=== PATIENT | female | born 2000 | race American Indian/Alaskan Native ===

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

== ENCOUNTER 2019-07-27 01:56 | Emergency (ER) | payer MEDICAID ==
[2019-07-27 02:24] VITALS: BP 114/73
[2019-07-27] MEDS ORDERED: IBUPROFEN 800 MG TAB PO ONE (07:30)
[2019-07-27] MEDS ORDERED: TETANUS,DIPH,PERTUSS(ACELL) VACCINE 0.5 ML SYRINGE IM ONE (07:30)
[2019-07-27] MEDS ORDERED: LIDOCAINE (1%) 10 MG/1 ML VIAL 20 ML MDV INFILTRATI ONE (07:54)
[2019-07-27] MEDS ORDERED: NEOMY 3.5 MG/BACIT 400 UNITS/POLY B 5000 UNITS/GM OINT PACKET TP ONE (07:54)
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
[2019-07-27] MEDS ORDERED: SODIUM CHLORIDE 0.9% IRR 500 ML BOTTLE IR ONE (09:00)
[2019-07-27] MEDS ORDERED: LIDOCAINE-MPF (1%) 10 MG/1 ML VIAL 5 ML INFILTRATI ONE (09:04)
== END 2019-07-27 12:24 | disposition home or self-care (01) ==
LOC: ED 01:56
DX: S81.811A Laceration without foreign body, right lower leg, initial encounter (principal); S10.91XA Abrasion of unspecified part of neck, initial encounter; S40.811A Abrasion of right upper arm, initial encounter; J45.909 Unspecified asthma, uncomplicated; F17.200 Nicotine dependence, unspecified, uncomplicated; Z91.018 Allergy to other foods; Y04.8XXA Assault by other bodily force, initial encounter; Y93.89 Activity, other specified; Y92.89 Other specified places as the place of occurrence of the external cause; Y99.8 Other external cause status
CPT/HCPCS: 12001; 90471; 90715; 96372; 99283; J0696; A6250

== ENCOUNTER 2021-02-18 17:22 | Outpatient (CLI) | payer MEDICAID ==
[2021-02-18 18:03] VITALS: BP 105/65
[2021-02-18 20:30] LABS: Bilirubin,Urine NEG (Negative); Blood,Urine NEG (Negative); Color,Urine Yellow (Yellow); Mucus,Urine FEW /HPF; Protein,Urine <15 mg/dL mg/dL (Negative); Urobilinogen,Urine < 2.0 mg/dL (<2.0)
== END 2021-02-18 21:23 | disposition home or self-care (01) ==
LOC: TRG 17:22 → APU 17:27 → TRG 21:23
PROVIDERS: ATTEND Obstetrics & Gynecology
DX: O26.892 Other specified pregnancy related conditions, second trimester (principal); R10.9 Unspecified abdominal pain; O47.02 False labor before 37 completed weeks of gestation, second trimester; Z3A.26 26 weeks gestation of pregnancy
CPT/HCPCS: 81001; 87086; Q0177

== ENCOUNTER 2021-02-19 22:45 | Outpatient (CLI) | payer MEDICAID ==
[2021-02-19] MEDS ORDERED: LACTATED RINGERS 500 ML IV ONE (23:46)
[2021-02-20 00:10] LABS: Bilirubin,Urine NEG (Negative); Blood,Urine NEG (Negative); Color,Urine Yellow (Yellow); Mucus,Urine FEW /HPF
[2021-02-20] MEDS ORDERED: LIDOCAINE-MPF (1%) 10 MG/1 ML VIAL 5 ML INFILTRATI ONE (00:20)
[2021-02-20] MEDS ORDERED: ACETAMINOPHEN 500 MG TAB PO ONE (00:21)
[2021-02-20] MEDS ORDERED: FLUCONAZOLE 200 MG TAB PO ONE (00:30)
[2021-02-20 01:38] VITALS: BP 104/56
== END 2021-02-20 01:41 | disposition home or self-care (01) ==
LOC: TRG 22:45 → APU 23:00 → TRG 02-20 01:41
PROVIDERS: ATTEND Obstetrics & Gynecology
DX: O26.892 Other specified pregnancy related conditions, second trimester (principal); Z3A.26 26 weeks gestation of pregnancy
CPT/HCPCS: 81001; 96372; J0696; 59025

== ENCOUNTER 2021-05-09 12:59 | Outpatient (CLI) | payer MEDICAID ==
[2021-05-09 18:04] VITALS: BP 113/78
--- NOTE | 2021-05-09 18:36 | Ultrasound Report ---
Limited OB Ultrasound Biophysical profile ultrasound HISTORY: well being. TECHNIQUE: Grayscale and color imaging performed. COMPARISON: None FINDINGS: There is a single intrauterine gestation with cephalic presentation. ADELE is 10 cm. Heart ra te is 141 bpm. On biophysical profile, the fetus received a score of 2 out of 2 for breathing, movement, posture/ton e, and ADELE. Total score was 8 out of 8. IMPRESSION: 1. Single viable intrauterine gestation as above. 2. Normal BPP. Signer Name: Daljit Hodges MD Signed: 05/09/2021 6:32 PM Workstation Name: [id number]
== END 2021-05-09 19:20 | disposition home or self-care (01) ==
LOC: TRG 12:59 → APU 13:01 → TRG 19:20
PROVIDERS: ATTEND Obstetrics & Gynecology
DX: Z34.93 Encounter for supervision of normal pregnancy, unspecified, third trimester (principal); Z3A.39 39 weeks gestation of pregnancy
CPT/HCPCS: 36415; 76815; 76819; 84112

== ENCOUNTER 2021-05-14 04:47 | Inpatient (IN) | payer MEDICAID ==
[2021-05-14] MEDS ORDERED: ONDANSETRON 4 MG/2 ML INJ IV ONE (05:25)
[2021-05-14] MEDS ORDERED: LACTATED RINGERS 1,000 ML IV ONE (05:29)
[2021-05-14 06:47] LABS: Bilirubin,Urine NEG (Negative); Blood,Urine MOD (Negative); Color,Urine Straw (Yellow); Protein,Urine <15 mg/dL mg/dL (Negative); Urobilinogen,Urine < 2.0 mg/dL (<2.0)
[2021-05-14 07:43] LABS: Basophils # (Auto) 0.1 K/mm3 (0.0-0.1); Basophils % (Auto) 1.2 % (0.0-1.8); Eosinophils # (Auto) 0.2 K/mm3 (0.0-0.4); Eosinophils % (Auto) 1.4 % (0.0-4.3); Hematocrit 33.4 % (30.3-42.9); Hemoglobin 11.4 gm/dl (10.1-14.3); Lymphocytes # (Auto) 2.7 K/mm3 (1.2-5.4); Lymphocytes % (Auto) 21.8 % (13.4-35.0); Mean Corpuscular HGB Conc 34 % (30-34); Mean Corpuscular Volume 83 fl (79-97); Monocytes # (Auto) 0.9 K/mm3 (0.0-0.8); Monocytes % (Auto) 7.2 % (0.0-7.3); Platelet Count 241 K/mm3 (140-440); Red Blood Count 4.02 M/mm3 (3.65-5.03); Red Cell Distribution Width 19.4 % (13.2-15.2)
[2021-05-14] MEDS ORDERED: LACTATED RINGERS 1,000 ML ONE (08:40)
[2021-05-14] MEDS ORDERED: OXYTOCIN DRIP 30,000 MILLIUNITS/500 ML BAG IV ONE (08:41)
[2021-05-14] MEDS ORDERED: TERBUTALINE 1 MG/1 ML INJ SUB-Q PRN (08:45)
[2021-05-14] MEDS ORDERED: CARBOPROST TROMETHAMINE 250 MCG/1 ML INJ IM PRN (08:45)
[2021-05-14] MEDS ORDERED: OXYTOCIN 10 UNIT/1 ML INJ IM PRN (08:45)
[2021-05-14] MEDS ORDERED: miSOPROStol 200 MCG TAB PR PRN (08:45)
[2021-05-14] MEDS ORDERED: LACTATED RINGERS 1,000 ML IV SCH (08:45)
[2021-05-14] MEDS ORDERED: LIDOCAINE (2%) 20 MG/1 ML VIAL 20 ML MDV INFILTRATI ONE ×2 (08:45→14:27)
[2021-05-14] MEDS ORDERED: MINERAL OIL 30 ML ORAL LIQD PO PRN (08:45)
[2021-05-14] MEDS ORDERED: ePHEDrine SULFATE 50 MG/1 ML INJ IV PRN (08:45)
[2021-05-14] MEDS ORDERED: LOPERAMIDE 2 MG CAP PO PRN (08:45)
[2021-05-14] MEDS ORDERED: METHYLERGONOVINE MALEATE 0.2 MG/ML VIAL IM PRN (08:45)
--- NOTE | 2021-05-14 08:50 | History and Physical Report ---
History of Present Illness Date of examination: 05/14/21 Date of admission: May 14, 2021 Chief complaint: Leakage of fluid and uterine contractions History of present illness: 21-year-old at 38+5 weeks who presents in active labor with leakage of fluid. The patient initiated care 15 weeks estimated gestational age. Her course has been complicated by STD exposure and hemoglobin C trait positive. GBS is negative Past History Past Medical History: other (Hemoglobin C trait) Past Surgical History: other (Exploratory laparotomy) Social history: single - Obstetrical History Expected Date of Delivery: 05/23/21 Actual Gestation: 38 Week(s) 5 Day(s) : 1 Para: 0 Hx # Term Pregnancies: 0 Number of Pregnancies: 0 Spontaneous Abortions: 0 Induced : 0 Number of Living Children: 0 Medications and Allergies Allergies Allergy/AdvReac Type Severity Reaction Status Date / Time mustard Allergy Itching Verified 07/27/19 02:26 Home Medications Medication Instructions Recorded Confirmed Last Taken Type cephALEXin [Keflex] 500 mg PO Q12HR #20 cap 07/27/19 05/14/21 Unknown Rx Review of Systems All systems: negative Genitourinary: leakage of fluid, contractions - Vital Signs Vital signs: Vital Signs Pulse BP 89 136/80 05/14/21 05:09 05/14/21 05:09 Temp Pulse Resp BP Pulse Ox 71 136/80 96 05/14/21 08:29 05/14/21 05:09 05/14/21 08:29 - Physical Exam Breasts: Positive: deferred Cardiovascular: Regular rate Lungs: Positive: Clear to auscultation Abdomen: Positive: normal appearance Results Result Diagrams: 05/14/21 06:29 Abnormal lab results 05/14/21 05/14/21 Range/Units 06:29 06:29 WBC 12.2 H (4.5-11.0) K/mm3 RDW 19.4 H (13.2-15.2) % [place] # (Auto) 0.9 H (0.0-0.8) K/mm3 Seg Neutrophils # 8.4 H (1.8-7.7) K/mm3 Membranes Rupture Positive A (Negative) All other labs normal. Assessment and Plan - Patient Problems (1) Active labor at term Current Visit: Yes Status: Acute Plan to address problem: Admit to labor and delivery
[2021-05-14] MEDS ORDERED: OXYTOCIN DRIP 30 UNITS/500 ML BAG IV SCH ×2 (09:00)
[2021-05-14] MEDS: BUTORPHANOL 2 MG/1 ML INJ IV PRN ×3 (09:40→14:45)
[2021-05-14] MEDS ORDERED: MAGNESIUM HYDROXIDE (MOM) ORAL LIQD UDC PO PRN (16:42)
[2021-05-14] MEDS ORDERED: PROMETHAZINE 25 MG TAB PO PRN (16:42)
[2021-05-14] MEDS ORDERED: WITCH HAZEL/ GLYCERIN PAD TP PRN (16:42)
[2021-05-14] MEDS ORDERED: diphenhydrAMINE 25 MG CAP PO PRN (16:42)
[2021-05-14] MEDS ORDERED: ACETAMINOPHEN 325 MG TAB PO PRN (16:42)
[2021-05-14] MEDS ORDERED: LANOLIN/ZINC/DIMETHICONE (LANSINOH) 7 GM TP PRN (16:42)
[2021-05-14] MEDS ORDERED: ONDANSETRON 4 MG/2 ML INJ IV PRN (16:42)
[2021-05-14] MEDS ORDERED: PROMETHAZINE 25 MG RECT SUPP PR PRN (16:42)
--- NOTE | 2021-05-14 16:44 | Procedure Note ---
OB Delivery Note - Delivery Date of Delivery: 05/14/21 Surgeon: STORM GAUTHIER - Vaginal Delivery presentation: vertex Delivery position: OA Intrapartum events: meconium Delivery augmentation: pitocin Delivery monitor: external FHT, external uterine Route of delivery: Delivery placenta: spontaneous Delivery cord: 3 umbilical vessels Episiotomy: none Delivery laceration: none Anesthesia: none - Infant A at 1 minute: 8 at 5 minutes: 9 Gender: Male (Weight 7 pounds 2 ounces)
[2021-05-14] MEDS: IBUPROFEN 600 MG TAB PO SCH (18:31)
[2021-05-14] MEDS: HYDROcodone/ACETAMINOPHEN 5-325 MG TAB PO PRN (19:33)
[2021-05-14 23:31] LABS: Hematocrit 26.7 % (30.3-42.9); Hemoglobin 9.1 gm/dl (10.1-14.3); Mean Corpuscular HGB Conc 34 % (30-34); Mean Corpuscular Volume 83 fl (79-97); Platelet Count 190 K/mm3 (140-440); Red Cell Distribution Width 19.8 % (13.2-15.2)
[2021-05-15] MEDS: IBUPROFEN 600 MG TAB PO SCH ×3 (00:02→11:15)
[2021-05-15] MEDS: HYDROcodone/ACETAMINOPHEN 5-325 MG TAB PO PRN ×3 (02:02→16:37)
[2021-05-15 06:13] LABS: Hematocrit 28.1 % (30.3-42.9); Hemoglobin 9.5 gm/dl (10.1-14.3)
--- NOTE | 2021-05-15 08:06 | Progress Note ---
Assessment and Plan A: PPD#1 s/p at term Elevated WBCs-patient afebrile P: Continue with routine care Repeat CBC, if WBC decrease, anticipate discharge at 24hrs. Subjective - Subjective Date of service: 05/15/21 Principal diagnosis: PPD#1 s/p at term Interval history: PPD #1 s/p at term. Patient is resting and is without complaints. Reports no problems with ambulation, decreasing lochia and adequate pain control. Patient reports: appetite normal, voiding normally, pain well controlled, ambulating normally [place]: doing well Objective - Vital Signs Latest vital signs: Vital Signs Temp Pulse Resp BP BP Pulse Ox 05/15/21 05:52 18 05/15/21 04:43 98.0 F 83 18 124/81 99 05/15/21 02:02 20 05/15/21 00:44 97.9 F 89 18 118/78 98 05/15/21 00:02 20 05/14/21 21:09 98.2 F 75 16 135/83 98 05/14/21 19:33 20 05/14/21 18:05 98.3 F 82 18 123/77 99 05/14/21 17:33 75 141/73 05/14/21 17:32 81 143/64 05/14/21 17:30 82 162/68 05/14/21 17:18 75 145/72 05/14/21 17:03 77 130/75 05/14/21 16:52 73 132/74 05/14/21 16:48 77 143/57 05/14/21 16:34 83 160/67 05/14/21 16:24 106 H 173/110 05/14/21 16:06 79 98 05/14/21 16:01 86 96 05/14/21 15:56 83 77 L 05/14/21 15:53 87 125/69 05/14/21 15:51 86 97 05/14/21 15:46 89 99 05/14/21 15:41 91 H 99 05/14/21 15:36 86 97 05/14/21 15:31 92 H 99 05/14/21 15:26 87 98 05/14/21 15:22 75 130/72 05/14/21 15:21 78 99 05/14/21 15:16 86 99 05/14/21 15:11 77 99 07/05/21 15:06 85 99 07/05/ 15:01 91 H 99 07/05/ 14:56 80 99 07/05/21 14:52 82 124/72 07/05/21 14:51 75 98 07/05/21 14:46 79 97 07/05/21 14:42 82 98 07/05/ 14:36 102 H 99 0705/ 14:31 110 H 98 07/05/ 14:26 82 96 07/05/21 14:25 78 132/82 07/05/21 14:21 87 97 07/05/ 14:17 98 H 97 07/05/ 14:12 86 99 07/05/ 14:06 82 97 07/05/ 14:01 78 98 07/05/ 13:57 80 96 07/05/ 13:52 72 132/80 07/05/ 13:51 81 97 07/05/ 13:46 78 97 07/05/ 13:41 84 96 0705/ 13:36 76 97 07/05/ 13:31 92 H 96 05/ 13:26 82 97 07/05/ 13:22 83 122/78 07/05/ 13:21 79 97 07/05/ 13:16 80 98 07/05/ 13:11 90 98 07/05/ 13:06 84 97 05/ 13:01 82 96 07/05/ 12:56 90 98 07/05/ 12:52 78 137/75 07/05/ 12:51 95 H 97 07/05/ 12:46 84 96 07/05/21 12:41 89 98 07/05/ 12:36 88 98 07/05/21 12:31 84 97 07/05/21 12:26 86 96 07/05/21 12:23 86 125/77 07/05/21 12:21 112 H 97 07/05/ 12:16 87 98 07/05/21 12:11 94 H 99 05/ 12:06 105 H 98 07/05/ 11:56 88 97 07/05/21 11:52 79 120/71 07/05/21 11:51 78 97 07/05/ 11:46 78 97 07/05/ 11:41 95 H 97 05/14/21 11:36 79 97 05/14/21 11:31 82 97 05/14/21 11:27 83 97 05/14/21 11:22 72 140/83 05/14/21 11:21 89 98 05/14/21 11:17 85 96 05/14/21 11:11 87 98 05/14/21 11:06 81 98 05/14/21 11:01 89 98 05/14/21 10:57 79 98 05/14/21 10:52 77 136/82 05/14/21 10:51 75 97 05/14/21 10:46 84 98 05/14/21 10:42 79 99 05/14/21 10:37 85 99 05/14/21 10:32 86 99 05/14/21 10:26 92 H 98 05/14/21 10:22 83 0 L 05/14/21 10:21 75 L 05/14/21 10:01 98 H 100 05/14/21 09:55 78 96 05/14/21 09:51 85 97 05/14/21 09:46 79 94 05/14/21 09:41 99 H 93 05/14/21 09:40 102 H 78 L 05/14/21 09:25 86 129/79 05/14/21 08:29 71 96 05/14/21 08:24 68 98 05/14/21 08:19 86 99 05/14/21 08:14 73 99 05/14/21 08:09 63 97 05/14/21 08:04 87 99 Intake and Output 05/14/21 05/15/21 05/15/21 23:59 07:59 15:59 Intake Total 240 600 Output Total 600 1300 Balance -360 -700 Intake: Oral 240 Intake, Free Water 600 Output: Urine 600 1300 Void 600 1300 Other: Total, Intake Amount 240 Total, Output Amount 600 500 # Voids Void 1 - Labs Labs: Abnormal lab results 05/14/21 05/14/21 05/15/21 Range/Units 06:29 22:59 05:55 WBC 19.8 H (4.5-11.0) K/mm3 RBC 3.20 L (3.65-5.03) M/mm3 Hgb 9.1 L 9.5 L (10.1-14.3) gm/dl Hct 26.7 L D 28.1 L (30.3-42.9) % RDW 19.8 H (13.2-15.2) % Membranes Rupture Positive A (Negative)
--- NOTE | 2021-05-15 08:08 | Discharge Summary ---
Providers - Providers Date of Admission: 05/14/21 08:46 Date of discharge: 05/15/21 Attending physician: STORM GAUTHIER 05/14/21 18:28 Consult to Case Management [CONS] Routine Services Needed at Discharge: Other Notified:: Case management Additional Physician Instructions: Possible adoption based on statements made during labor Primary care physician: STORM GAUTHIER Hospitalization Reason for admission: active labor, IUP at term Delivery: Episiotomy: none Laceration: none Other procedures: none complications: none Discharge diagnosis: IUP at term delivered [place] baby: male Condition at discharge: Good Disposition: DC-01 TO HOME OR SELFCARE Plan - Discharge Medications Prescriptions: Ferrous Sulfate [Feosol 325 MG tab] 325 mg PO BID #60 tablet Ibuprofen [Motrin] 600 mg PO Q8H PRN #30 tablet PRN Reason: Pain - Provider Discharge Summary Activity: routine, no sex for 6 weeks, no heavy lifting 4 weeks, no strenuous exercise Diet: routine Instructions: routine Additional instructions: [] Smoking cessation referral if applicable(refer to patient education folder for contact #) [] Refer to [facility]'s [facility] Booklet Call your doctor immediately for: * Fever > 100.5 * Heavy vaginal bleeding ( >1 pad per hour) * Severe persistent headache * Shortness of breath * Reddened, hot, painful area to leg or breast * Drainage or odor from incision. * Keep incision clean and dry at all times and follow doctor's instructions regarding bathing/showering - Follow up plan Follow up: STORM GAUTHIER MD [Primary Care Provider] - 7 Days LAURA SNYDER COKE DRAWER [Advanced Practice Nurse] - 06/11/21 Forms: [facility] Discharge Summary
[2021-05-15 09:57] LABS: Basophils # (Auto) 0.1 K/mm3 (0.0-0.1); Basophils % (Auto) 0.4 % (0.0-1.8); Eosinophils # (Auto) 0.1 K/mm3 (0.0-0.4); Eosinophils % (Auto) 0.9 % (0.0-4.3); Hematocrit 24.6 % (30.3-42.9); Hemoglobin 8.6 gm/dl (10.1-14.3); Lymphocytes # (Auto) 3.3 K/mm3 (1.2-5.4); Lymphocytes % (Auto) 20.4 % (13.4-35.0); Mean Corpuscular HGB Conc 35 % (30-34); Mean Corpuscular Volume 83 fl (79-97); Monocytes % (Auto) 6.2 % (0.0-7.3); Platelet Count 183 K/mm3 (140-440); Red Blood Count 2.96 M/mm3 (3.65-5.03); Red Cell Distribution Width 19.4 % (13.2-15.2)
[2021-05-15 16:52] VITALS: BP 123/86
== END 2021-05-15 18:30 | disposition home or self-care (01) | DRG 775 ==
LOC: TRG 04:47 → APU 04:58 → TRG 09:02 → LD 09:41 → OB 18:06
PROVIDERS: ADMIT Obstetrics & Gynecology; ATTEND Obstetrics & Gynecology
PROC: 10E0XZZ Delivery of Products of Conception, External Approach (ICD-10-PCS; principal; 2021-05-14)
DX: O99.12 Other diseases of the blood and blood-forming organs and certain disorders involving the immune mechanism complicating childbirth (principal); O76 Abnormality in fetal heart rate and rhythm complicating labor and delivery; D58.2 Other hemoglobinopathies; Z20.822 Contact with and (suspected) exposure to COVID-19; D72.829 Elevated white blood cell count, unspecified; Z3A.38 38 weeks gestation of pregnancy; Z37.0 Single live birth
CPT/HCPCS: 36415; 81001; 84112; 85014; 85018; 85025; 85027; 86592; 86850; 86900; 86901; 96360; 96361; 96366; 96367; G0378; J0595; J2405; J2590; J7120; Q0177; U0003